=== PATIENT | female | born 1995 | race Caucasian/White ===

== ENCOUNTER 2017-07-01 22:40 | Emergency (ER) | payer BC ==
[~2017-07-01] VITALS: Ht 157.5 cm; Wt 53.6 kg
[2017-07-01 22:43] VITALS: TEMP 36.7; Ht 157.5 cm; Wt 53.6 kg
[2017-07-01] MEDS ORDERED: LIDOCAINE/EPINEPH/TETRACAINE 1 EA SYR EXT STA (22:53)
[2017-07-01] MEDS ORDERED: BCPILLS PO (23:30)
[2017-07-01] MEDS ORDERED: anxiety med PO (23:31)
[2017-07-01] MEDS ORDERED: CEPHALEXIN 500MG HOME PACK 1 EA BTL PO ONE (23:45)
[2017-07-01] MEDS ORDERED: CEPH500C2 PO (23:48)
[2017-07-02 00:01] VITALS: BP 138/88; PULSE 92; O2SAT 98
--- NOTE | 2017-07-02 00:12 | EMERGENCY ROOM VISIT NOTE ---
History First contact with patient: 22:49 Chief Complaint: LACERATION/CUT (NON-SUTURE) Stated Complaint: BLEEDING - CUT CHIN Nursing Triage Summary: drinking tonight fell lac to chin and abrasions to knees. History of Present Illness The patient is a 21 year old female who presents to the Emergency Room with complaints of chin laceration who is intoxicated who tripped and fell in the gravel. Patient has multiple abrasions to her legs and left cheek. Tetanus is current. Patient denies neck pain, chest pain, dyspnea, numbness, tingling, weakness, loss conscious, dental pain, abdominal pain or any other medical complaints. Review of Systems An 10 system review of systems was completed with positives and pertinent negatives listed in the HPI. Past Medical/Surgical History None Social History Smoking Status: Never Smoker Smokeless Tobacco Use: No Alcohol Use: occasionally Drug Use: none Marital Status: single Occupation Status: [employer] student Current/Historical Medications Scheduled Control Pills ( Control Pills), 1 TAB PO DAILY Cephalexin Monohydrate (Keflex), 500 MG PO QID Scheduled PRN [anxiety med], 1 DOSE PO DIRECTED PRN for anxiety Physical Exam Vital Signs Date Time Temp Pulse Resp B/P (MAP) Pulse Ox O2 Delivery O2 Flow Rate FiO2 07/01/17 22:43 36.7 127 20 148/95 99 Room Air Physical Exam VITALS: Vitals are noted on the nurse's note and reviewed by myself. Vital signs stable GENERAL: Pleasant female who is intoxicated, in no acute distress, nondiaphoretic, well-developed well-nourished. SKIN: Left zygomatic abrasion and contusion, multiple abrasions to the lower legs without signs of infection, 3 cm gaping chin laceration with gravel presents. The rest of the skin was without rashes, erythema, edema, or bruising. There is no tenting of the skin. Capillary reflex less than 2 seconds. HEAD: Normocephalic atraumatic. EARS: External auditory canals clear, tympanic membranes pearly gregg without erythema or effusion bilaterally. EYES: Pupils equal round and reactive to light and accommodation. Conjunctivae with injection, sclerae without icterus. Extraocular movements intact. NOSE: Patent, turbinates without inflammation or discharge. No sinus tenderness. MOUTH: Mucous membranes moist. Pharynx without erythema or exudate. Uvula midline. Airway patent. Tongue does not deviate. Face: Patient fully open and close jaw without pain. Face nontender to palpation. Dental exam: No loose or chipped teeth NECK: Supple without nuchal rigidity. No lymphadenopathy. No thyromegaly. Cervical spine is nontender. No JVD. HEART: Regular rate and rhythm without murmurs gallops or rubs. LUNGS: Clear to auscultation bilaterally without wheezes, rales or rhonchi. No retractions or accessory muscle use. ABDOMEN: Positive bowel sounds x 4. Normal tympanic percussion. Soft, nontender, without masses or organomegaly. Levine sign negative. No guarding or rebound tenderness. No CVA tenderness MUSCULOSKELETAL: No muscle atrophy, erythema, or edema noted. NEURO: Patient was alert and oriented to person place and time. Normal sensation to light and sharp touch. No focal neurological deficits. Medical Decision & Procedures Medications Administered Medications (Trade) Dose Ordered Sig/Skinny Route Start Time Stop Time Status Last Admin Dose Admin Tetracaine/ Epinephrine/ Lidocaine (L.e.t. Gel 4%/ 1:100/0.5%) 1 ea NOW STAT EXT 07/01/17 22:53 07/01/17 22:54 DC 07/01/17 22:53 1 EA Cephalexin Monohydrate (Keflex 500MG Home Pack) 1 homepack NOW ONCE PO 07/01/17 23:45 07/01/17 23:46 DC 07/01/17 23:56 1 HOMEPACK Procedure Location: chin Total length: 3cm Complexity: simple Verbal consent was obtained after the risks and benefits were explained, including but not limited to bleeding, scarring, infection, pain, and bone/joint /nerve damage. At this time, the risks of the procedure are less than the risks of NOT performing the procedure. A time out was taken and the correct patient and site identified. The skin was prepped with betadine. The target area was anesthetized with LET. Copious irrigation was performed using NSS and all obvious foreign bodies were removed. The skin was re-prepped with betadine and a sterile field set. The wound was explored for foreign bodies and all gravel was removed. Examination revealed no injury to deep structures such as tendons, bone, or significant blood vessels. Debridement was not performed. The wound edges were approximated using 6, 6-0 simple interrupted nylon sutures. Hemostasis and excellent approximation was achieved. Antibacterial ointment and a sterile dressing applied. Detailed wound care instructions and signs and symptoms of infection reviewed with the pt/friend. No complications and the patient tolerated the procedure well. ED Course Prior records/ancillary studies reviewed. Triage Nursing notes reviewed. Additional history obtained from friend. The patient's history was concerning for traumatic head injury who is intoxicated Differential diagnosis: Etiologies such as concussion, contusion, fracture, subdural hematoma, epidural hematoma, intraparenchymal hemorrhage, as well as other traumatic pathologies were entertained. Physical examination findings: As above. ER treatment provided: Wound care by nursing, laceration repair as above On reassessment the patient felt better. Diagnostics interpreted by me: Imaging studies: Head and facial CT negative for fracture or intracranial bleed per stat radiology and reviewed by myself It appears the patient has a head injury who was intoxicated with laceration and multiple abrasions. Patient was intoxicated so imaging was ordered. This is unremarkable. Patient and friend were counseled on head injury signs and symptoms and on wound care and on laceration care. The wound was dirty and debridement was done and patient was placed on Keflex. All obvious foreign bodies were removed. The wound was copiously irrigated. Patient was advised to take medications as directed, rest, stay well-hydrated, follow-up family care in a few days or here in the ER sooner for headache, fevers, confusion, vomiting, worsening signs or symptoms or as needed. No other injuries were noted. Patient was well-appearing. She was ambulating without difficulties. She was discharged home in the care of her friend who was sober. By the evaluation outlined above emergent etiologies such as fracture, subdural hematoma, epidural hematoma, intraparenchymal hemorrhage, as well as others were deemed relatively unlikely. The pt informed about the findings as listed above. All questions were answered and pleased with the treatment. Return instructions were outlined and the patient was discharged in stable condition. Outpatient Prescription Management: keflex Referral: The patient was referred back to their primary care physician for follow-up in 2 to 3 days for a recheck of the current condition. The chart was completed utilizing [employer] voice recognition software. Grammatical errors, random word insertions, pronoun errors, and incomplete sentences are an occassional consequence of this system due to software limitations, ambient noise, and hardware issues. Any formal questions or concerns about the content, text, or information contained within the body of this dictation should be directly addressed to the physician ict sales assistant for clarification. Medical Decision As above Head Trauma GCS Score: 15 Medication Reconcilliation Current Medication List: was personally reviewed by me Blood Pressure Screening Patient's blood pressure: Normal blood pressure Impression Primary Impression: Chin laceration Additional Impressions: Multiple abrasions Head injury Departure Information Dispostion Home / Self-Care Condition GOOD Prescriptions Cephalexin Monohydrate (KEFLEX) 500 Mg Cap 500 MG PO QID for 7 Days, #28 CAP Prov: Mechelle Blackmon ., SUE 07/01/17 Forms WORK / SCHOOL INSTRUCTIONS, HOME CARE DOCUMENTATION FORM, IMPORTANT VISIT INFORMATION Patient Instructions My [facility], ED Abrasion, ED Head Injury Closed, ED Laceration All Additional Instructions Head injury: Read head injury handout and return for any symptoms. Tylenol 1000 mg as needed for pain (Maximum 3000 mg Tylenol in 24 hr period). Avoid alcohol and contact sports/activities for one week and follow up with family doctor prior to returning to these activities if still symptomatic. Ice and elevate head. If your symptoms persist more than a week then follow up with the concussion clinic. Call [phone]. Return to ER sooner for headache, fevers, confusion, worsening signs or symptoms or as needed. Abrasion: Antibiotic ointment and bandage to the areas until healed. Follow up with family doctor or return for any signs of infection (increasing redness, swelling , drainage, or fever). Keep covered when in sun until fully healed then SPF 50 or higher until scar healed. Laceration: Cephalexin(Keflex) 500mg: Take one pill four times daily for 7 days. All antibiotics can cause diarrhea. If this occurs and you feel worse or it does not resolve in 1-2 days follow up with your doctor or return to the Emergency Department as this could be signs of serious underlying problems. Any medication can cause an allergic reaction, stop the pills immediately and return to the ER for rash, hives, breathing difficulties, or swelling. Keep wound clean and dry. Do not allow any crusting or dried blood to accumulate on sutures. If this occurs, use a 1:1 solution of hydrogen peroxide/ water on a Q-tip to clean the wound. Use an antibiotic ointment for 3-4 days, then let wound dry. Suture removal in 5-7 days. Return sooner for any signs of infection (increasing redness, swelling, drainage). Ice and elevate for swelling and pain. Keep covered when in sun until sutures removed then SPF 50 or higher for one year. Vitamin E oil if desired two weeks after suture removal for reduction of scar. Problem Qualifiers Primary Impression: Chin laceration Encounter type: initial encounter Qualified Codes: S01.81XA - Laceration without foreign body of other part of head, initial encounter
--- NOTE | 2017-07-02 06:31 | DIAGNOSTIC IMAGING REPORT ---
HEAD WITHOUT CONTRAST (CT) CLINICAL HISTORY: 21 years-old Female with fall, facial injury, ETOH. Acute head injury status post fall TECHNIQUE: Multiple axial CT images of the head were obtained without contrast. A dose lowering technique was utilized adhering to the principles of ALARA. COMPARISON: CT maxillofacial same day. FINDINGS: No acute intracranial hemorrhage, midline shift, intracranial mass, hydrocephalus, territorial ischemia or abnormal extra-axial collection. The calvarium is intact. The paranasal sinuses, mastoid air cells, and middle ear cavities are clear. IMPRESSION: No acute intracranial abnormality. The above report was generated using voice recognition software. It may contain grammatical, syntax or spelling errors. Electronically signed by: Reuben Hayes M.D. 07/02/2017 6:30 AM Dictated Date/Time: 07/02/2017 6:29 AM
--- NOTE | 2017-07-02 06:45 | DIAGNOSTIC IMAGING REPORT ---
FACIAL BONES-MXILLOFAC WITHOUT CLINICAL HISTORY: 21 years-old Female presenting with fall, facial injury, ETOH. Acute facial injury status post fall COMPARISON STUDY: CT head of same day TECHNIQUE: High-resolution CT scan of the facial bones is performed. Images are reviewed in the axial, sagittal, and coronal planes. IV contrast was not administered for this examination. A dose lowering technique was utilized adhering to the principles of ALARA. CT DOSE: 763.46 mGy.cm FINDINGS: There is no evidence of facial bone fracture. The bony orbits are intact and the orbital contents are within normal limits. The zygomatic arches, nasal bones, and pterygoid plates are preserved. The maxilla and mandible are intact. Minimal mucosal thickening of the right maxillary sinus and posterior ethmoid air cells.. The imaged calvarium and upper cervical spine are within normal limits. Partially imaged brain parenchyma is within normal limits. IMPRESSION: No acute facial bone fracture. The above report was generated using voice recognition software. It may contain grammatical, syntax or spelling errors. Electronically signed by: Reuben Hayes M.D. 07/02/2017 6:44 AM Dictated Date/Time: 07/02/2017 6:41 AM
== END 2017-07-02 00:02 | disposition home or self-care (01) ==
LOC: C.EDB 22:43 → C.EDA 07-02 00:02
DX: S01.82XA Laceration with foreign body of other part of head, initial encounter (principal); W18.09XA Striking against other object with subsequent fall, initial encounter; S80.811A Abrasion, right lower leg, initial encounter; S80.812A Abrasion, left lower leg, initial encounter; Z79.3 Long term (current) use of hormonal contraceptives; F10.929 Alcohol use, unspecified with intoxication, unspecified